=== PATIENT | male | born 1945 | race Caucasian/White ===

== ENCOUNTER 2018-02-28 19:00 | Emergency (ER) | payer OTHER ==
[~2018-02-28 19:00] MED LIST: AMLODIPINE-BEN1 EAC4 PO; EPIPEN 2-P0.3 MG/0.3 IM; METOPROLOL TART50 M1 PO; PRAVASTATIN SOD40 M2 PO; PREDNISONE10 M2 PO
--- NOTE | 2018-02-28 19:39 | ED GENERAL ADULT ---
History of Present Illness General Chief Complaint: Cardiopulmonary Resuscitation Stated Complaint: CPR Source: EMS Exam Limitations: unable to give history, physical impairment Vital Signs & Intake/Output Vital Signs & Intake/Output The patient Allergies Coded Allergies: No Known Allergies (02/27/16) Reconcile Medications Amlodipine Besylate/Benazepril (Amlodipine-Benazepril 10-20 MG) 10 MG-20 MG CAPSULE 1 CAP PO DAILY HEART (Reported) Epinephrine (Epipen 2-Bhavik) 0.3 MG/0.3 ML AUTO.INJCT 1 DOSE IM ONCE PRN allergic reaction Metoprolol Tartrate 50 MG TABLET 1 TAB PO BID HEART (Reported) Pravastatin Sodium 40 MG TABLET 1 TAB PO DAILY CHOLESTEROL (Reported) Prednisone 10 MG TABLET 1 DOSE PO OCNE DAILY allergy 4 tabs PO x 3 days then 3 tabs PO x 3 days then 2 tabs PO x 3 days then 1 tabs PO x 3 days Triage Nurses Notes Reviewed? yes Onset: Abrupt Duration: 1819 Timing: recent history HPI: 02/28/18 The patient was seen on arrival. He is a 72-year-old male who was brought into the emergency department by EMS was unable to patch. The patient is in asystolic cardiac arrest. According to the paramedics he was found in asystole with dependent lividity at 1826 External chest compression device was in place. He had received 5 epinephrines in the field There was no response They were unable to intubate him in the field attempt 1 by history Past History Medical History Any Pertinent Medical History? see below for history Cardiovascular: hypertension, hyperlipidemia Surgical History Surgical History: none Psychosocial History What is your primary language Estonian Family History Hx Contributory? No Review of Systems Review of Systems Constitutional: Denies: fever. EENTM: Reports: no symptoms. Respiratory: Reports: no symptoms. Cardiovascular: Reports: no symptoms. GI: Reports: no symptoms. Genitourinary: Reports: no symptoms. Musculoskeletal: Reports: no symptoms. Skin: Reports: no symptoms. Neurological/Psychological: Reports: no symptoms. Hematologic/Endocrine: Reports: no symptoms. Immunologic/Allergic: Reports: no symptoms. Physical Exam Physical Exam General Appearance: unresponsive being ventilated, oral airway, blood in the oropharynx Head: blood in the oropharynx pupils are fixed and dilated, mottled Eyes: Bilateral: other (pupils are fixed and dilated). Ears, Nose, Throat: trachea is midline Neck: limited range of motion Respiratory: good air entry with bagging Cardiovascular: asystole Gastrointestinal: distended Back: decreased range of motion Extremities: pedal edema Neurologic/Psych: unresponsive Skin: mottled Core Measures ACS in differential dx? Yes CVA/TIA Diagnosis: No Sepsis Present: No Sepsis Focused Exam Completed? No Progress Differential Diagnoses I considered the following diagnoses in my evaluation of the patient: [Acute myocardial infarction, V. fib arrest, pulmonary embolism, GI bleed, intracranial bleed, head trauma] Plan of Care: The patient was treated with standard CPR. He received an additional 6 doses of IV epinephrine and 1 dose of bicarbonate. He was intubated with a size 7.5 endotracheal tube using the [employer] vision. The cords were extremely edematous and there was a large amount of blood in the oropharynx. His abdomen was additionally distended. It is decompressed with NG tube. There was gross blood in the NG tube that was suctioned. Despite all aggressive measures. The patient did not respond and remained in asystolic arrest.. Prior to calling the code cardiac ultrasound was done and showed no activity. The patient was pronounced by me at 1929 The patient's was notified The ME will be notified by the ED staff and organ donation will be contacted Initial ED EKG: none Departure Departure Disposition: STILL A PATIENT Condition: Stable Clinical Impression Primary Impression: Cardiac arrest Referrals: Della WALKER,Marco Antonio Miles (PCP/Family) Departure Forms: General Discharge Information Critical Care Note Critical Care Note Critical Care Time: 30-74 min
[2018-02-28 20:42] VITALS: BP 00/00
== END 2018-02-28 21:56 | disposition expired ==
LOC: ERH 19:00 → ENTRNSPT 21:57 → EDTRNSPTSTS 22:11 → EDTRNSPT 22:11 → CMPTRNSPT 22:19
DX: I46.9 Cardiac arrest, cause unspecified (principal)
CPT/HCPCS: 1387; 94799; 96374; 96375; 99291